=== PATIENT | female | born 1980 | race Caucasian/White ===

== ENCOUNTER 2023-05-10 12:40 | Outpatient (CLI) | payer BC, SELFPAY ==
--- NOTE | 2023-05-10 13:35 | ECG_ITS ---
Measurements Intervals [place] Rate: 66 P: 73 CA: 176 QRS: 74 QRSD: 100 T: 51 QT: 414 QTc: 434 Interpretive Statements SINUS RHYTHM WITH SINUS ARRHYTHMIA INCOMPLETE RIGHT BUNDLE BRANCH BLOCK BASELINE ARTIFACT- I, II, III, AVR, AVL, AVF, V1-V6 BORDERLINE ECG NO PREVIOUS ECG AVAILABLE FOR COMPARISON Electronically Signed On 05-10-2023 13:57:48 QUALIFICATIONS EXAMINER by Dax Boone D.O.
[2023-05-10 13:58] LABS: Hematocrit 41.7 % (37.0-47.0); Hemoglobin 14.3 g/dL (12.0-15.0)
== END 2023-05-10 12:41 | disposition home or self-care (01) ==
PROVIDERS: Anesthesiology; Visit Provider Surgery
DX: Z01.818 Encounter for other preprocedural examination (principal); I45.10 Unspecified right bundle-branch block; R93.1 Abnormal findings on diagnostic imaging of heart and coronary circulation; Z41.1 Encounter for cosmetic surgery
CPT/HCPCS: 36415; 85014; 85018; 93005

== ENCOUNTER 2023-05-16 00:37 | Day surgery (SDC) | payer OTHER, BC, SELFPAY ==
[2023-05-08 11:25] VITALS: BMI 24.9
--- NOTE | 2023-05-08 11:31 | PC.NURSE ---
Report to the Outpatient Waiting Room, entrance under the green pavilion located off [facility], at time 6:00 on date 05/16/23. Planned Procedure Time: 7:30. Time changes happen often and if your time is changed the preop area will call you the afternoon before. - You and your visitor will be asked to self-screen and do not enter if you have any COVID symptoms. - A mask is optional within the hospital at this time. Patients may have clear liquids (water, carbonated beverages, clear teas, apple juice) until 3 hours prior to surgery (4:30) with a maximum of 20 ounces. - No food from midnight until time of surgery Take the following medications with a SIP of water the morning of surgery: N/A DO NOT STOP ANY OF YOUR OTHER PRESCRIPTION MEDICATIONS PRIOR TO SURGERY ?EXCEPT THE FOLLOWING Medications to discontinue per physician: N/A Date to take last dose: N/A Please no make-up, nail qatari, hairspray, perfume, deodorant, or body powder the day of surgery. No jewelry (including any body piercings) or valuables the day of surgery, leave them at home. Please take a shower or bath the night before, or the morning of, surgery with an antibacterial soap. Wear comfortable, loose fitting clothing. - Jewelry must be removed prior to entering the operating room. Rings and piercings that are not removed may be cut off. - The hospital will not accept responsibility for valuables. - Please leave all valuables, including medications, at home the day of surgery. If you are going home after surgery, a licensed test driver must drive you home. - NO public transportation without another adult if you receive anesthesia. - We recommend that an adult stay with you for 24 hours following discharge. - We also recommend that you do not drive, make important decision, drink alcoholic beverages, or take any drugs that were not prescribed by your health care provider for at least 24 hours after your discharge time. Follow any additional instructions given to you from your surgeon. If you or anyone in your household have experienced Covid symptoms in the past week, please notify your surgeon or the nurse liaison at the phone number below for possible testing. Telephone instructions given to PT - BHARTI BARNETT and asked if any additional questions and then verbalized understanding. Patient advised to call surgeon office or pre surgery nurse liaison [phone] if any additional questions.
[2023-05-16] VITALS (12 sets, daily range): BP systolic 102–119; BP diastolic 62–80; PULSE 63–81; RESP 13–17; TEMP 36.6–37.3; O2SAT 98–100
[2023-05-16] MEDS: ACETAMINOPHEN 500 MG TABLET 1000 MG PO (06:25)
[2023-05-16] MEDS: SCOPOLAMINE 1 MG PATCH 1 PATCH TRANSDERM (06:26)
[2023-05-16 06:34] LABS: Urine Cotinine NEGATIVE
[2023-05-16] MEDS: LACTATED RINGERS 1,000 ML 30 ML IV CONT ×3 (06:40→12:15)
[2023-05-16] MEDS: KETOROLAC 15 MG/ML VIAL (*BKC) IV PUSH (06:41)
--- NOTE | 2023-05-16 06:57 | WPDHPUPDATE1 ---
History and Physical Update Update Date/Time: 05/16/23 06:57 History and Physical has been reviewed, including an updated exam of the patient. There are NO changes in the patient's condition. Risks, benefits, and alternatives have been discussed and questions answered. Patient agrees to proceed with procedure.
--- NOTE | 2023-05-16 07:15 | W.PM.PROC2 ---
Procedure Note - Detailed Date of Procedure 05/16/23 Pre-op Diagnosis skin laxity, 3cm Umb Hernia Post-op Diagnosis Same Procedure Performed Progressive tension abdominoplasty with suction lipectomy Surgeon Dewayne Howell MD Anesthesia General Findings Tissue removed: 814 grams Lipoaspirate: 1,900 cc Description of Procedure They are here today for the above procedures. Previously and again today the risks, benefits, alternatives were discussed in extensive detail. I wanted them to be very realistic about the risks involved as well as expectations. We discussed aftercare and what to monitor for. I was very upfront about the risks of wound breakdown leading to loss of skin, open wounds, and need for additional procedures with permanent abdominal deformity. We discussed DVT/PE risks and management. Made sure answered all of their questions to their satisfaction today and consent was obtained. They were marked in the preoperative holding area with their verification. The patient was taken to the operating room. Anesthesia was provided by anesthesiology. A Godfrey catheter was started. Placed prone on the operating room table with care taken to protect from injury. Prepped and draped in a standard sterile fashion. A surgical time-out was taken. Stab incisions were made and tumescent solution was infiltrated. Once adequate time was allowed for hemostasis a 5mm basket and 3mm multi hole cannula were utilized to complete suction lipectomy based on S.A.F.E. technique in multiple planes and passes. Suction lipectomy continued to result based on pre-operative planning, intra-operative observation, and rolling pinch test which were in full agreement. Patient was then placed supine with care taken to protect from injury. I placed the patient in a flexed position to verify the upper and lower markings would reach. I then placed supine. A thorough abdominal examination was completed. Stab incisions were made and tumescent solution infiltrated. Stab incisions were made and tumescent solution was infiltrated. Once adequate time was allowed for hemostasis a 5mm basket and 3mm multi hole cannula were utilized to complete suction lipectomy based on S.A.F.E. technique in multiple planes and passes. Suction lipectomy continued to result based on pre-operative planning, intra-operative observation, and rolling pinch test which were in full agreement. A 10 blade was used to make the upper incision. I continued dissection down to the level of fascia. Elevated just what was necessary for repair of the diastasis. I then again flexed the bed to verify the upper skin flap would reach the lower markings without tension. Once verified I placed her supine once again and a 10 blade used to make the lower incision. I elevated up to level the umbilicus and left the umbilicus intact on a well-vascularized stalk. The intervening tissue was removed. A 2 mm blunt cannula with 0.5% bupivicaine was injected deep to the fascia bilaterally. Dr. Vo entered for repair of the umbilical hernia. See his note for details. I plicated the diastasis recti using 0 PDO stratafix barbed suture. This was in 2 separate layers using 2 separate sutures as well. I repaired around the umbilicus leaving plenty of room for well-vascularized stalk of the umbilicus with 2-0 PDS. I also repaired lateral to the rectus using two layers of 0 PDO stratafix. The patient was flexed and starting from superior to inferior began plication using 2-0 Vicryl to obliterate all space in a standard progressive tension fashion. At the umbilicus I marked out the location of the skin and inset this with 3-0 Monocryl and 4-0 Vicryl. I continued the remainder of the plication using 2-0 Vicryl until I reached my lower planned scar line. I trimmed any excess skin of the upper flap making sure this was a tension-free closure. 10 Tray drain placed. I then approximated using a 3 point suture
--- NOTE | 2023-05-16 07:21 | WPDANESEPPF ---
Anes - Initial Pre Proc Eval Procedure: Operation Date: 05/16/23 07:30 Proposed Procedures p Abdominoplasty with Liposuction - Dewayne Howell MD s Open Umbilical Hernia Repair, Possible Mesh - Autumn Vo MD Date/Time: 05/16/23 07:21 Surgeon: Dewayne Howell MD Pre Op Diagnosis: skin laxity, 3cm Umb Hernia Patient Data Age: 42 Gender: F Height: 1.68 m Weight: 70.2 kg Last Vital Signs Temp 97.9 F 05/16/23 06:19 Pulse 63 05/16/23 06:19 Resp 16 05/16/23 06:19 BP 111/76 05/16/23 06:19 Pulse Ox 100 05/16/23 06:19 O2 Del Method Room Air 05/16/23 06:19 Allergies Allergy/AdvReac Type Severity Reaction Status Date / Time cefaclor Allergy Mild vomiting Verified 05/16/23 06:23 as child Home Medications Medication Instructions Recorded Confirmed Type No Home Medications 03/18/23 05/16/23 History Laboratory Tests 05/16/23 06:12 Cotinine Negative Patient hx anesthesia problems: post op nausea/vomiting Family hx anesthesia problems: none Results Review: All pre-operative results and documents have been reviewed as part of the pre-operative evaluation. [facility] Surgical History Surgical History History of foot surgery Previous section x2 S/P ACL reconstruction x3 Social History Social History Smoking status: Never smoker Alcohol intake: current Drinks per week: 3 Alcohol use details: rarely Substance use: never Substance use type: does not use Living arrangements: with family Occupation/Education: unemployed Spiritual care concerns: No Anes - Eval Final PreProcedure Day of Procedure 05/16/23 07:21 Patient weight: overweight Heart: regular rate and rhythm Lungs: clear to auscultation Airway: Mallampati scale class II Neurological: alert and oriented Last oral intake: >/= 8 hours ASA classification: II Emergent: no Anesthetic plan: proceed Anesthesia type and monitoring: general ETT and standard monitoring Results Review: All pre-operative results and documents have been reviewed as part of the pre-operative evaluation. Informed Consent: The patient's anesthetic plan and its attendant risks and benefits were discussed with the patient/family/POA. Questions were solicited and answers provided to the satisfaction of the patient/family/POA.
--- NOTE | 2023-05-16 07:27 | PM.IMHP ---
H&P: HPI History of Present Illness Date/Time: 05/16/23 07:27 Chief Complaint: umbilical hernia Narrative: Kenroy is a 42 y/o female who presents with umbilical hernia at the request of Dr. Howell. She noticed this a few years ago during her . She feels the bulge has increased with each but does not typically experience pain. She is able to reduce the bulge when laying down. She is scheduled for an abdominoplasty with Dr. Howell and would like to coordinate surgery. She has a surgical history of . Review of Systems Review of Systems: All systems reviewed & are unremarkable except as noted in HPI and below PMFSH Surgical History Surgical History History of foot surgery Previous section x2 S/P ACL reconstruction x3 Social History Social History Smoking status: Never smoker Alcohol intake: current Drinks per week: 3 Alcohol use details: rarely Substance use: never Substance use type: does not use Living arrangements: with family Occupation/Education: unemployed Spiritual care concerns: No Meds Home Medications and Allergies Home Medications Medication Instructions Recorded Confirmed Type No Home Medications 03/18/23 05/16/23 History Allergies Allergy/AdvReac Type Severity Reaction Status Date / Time cefaclor Allergy Mild vomiting Verified 05/16/23 06:23 as child Vital Signs Vital Signs - 24 hr 05/16/23 06:19 Temperature 36.6 C Pulse Rate 63 Respiratory Rate 16 Blood Pressure 111/76 Pulse Oximetry 100 Oxygen Delivery Room Air Exam Const: General: cooperative, comfortable and no acute distress Resp: Auscultation: clear to auscultation bilaterally Cardio: Rate: regular rate Rhythm: regular rhythm GI: Other: moderate umbilical hernia c incarcerated preperitoneal fat Assessment and Plan Assessment and plan (1) Umbilical hernia without mention of obstruction or gangrene: Qualifiers: Obstruction and gangrene presence: without obstruction or gangrene Qualified Code(s): K42.9 - Umbilical hernia without obstruction or gangrene Code(s): K42.9 - Umbilical hernia without obstruction or gangrene Status: Acute Assessment and Plan: will setup for repair c possible mesh, surgery will be concurrent c abdominoplasty by Plastics
--- NOTE | 2023-05-16 07:29 | WPDHPUPDATE1 ---
History and Physical Update Update Date/Time: 05/16/23 07:29 History and Physical has been reviewed, including an updated exam of the patient. There are NO changes in the patient's condition. Risks, benefits, and alternatives have been discussed and questions answered. Patient agrees to proceed with procedure.
[2023-05-16] MEDS: CLINDAMYCIN 900 MG/D5W 50 ML 900 MG/50 ML PIGGYBACK 50 MG IVPB (07:33)
[2023-05-16] MEDS: BUPIVACAINE/EPINEPHRINE 0.5% 30 ML VIAL 60 ML INFILTRATE (07:33)
[2023-05-16] MEDS: TRANEXAMIC ACID 1,000MG/ISO100 1,000 MG/100 ML BAG 200 MG IVPB (07:52)
--- NOTE | 2023-05-16 10:26 | W.PM.PROC2 ---
Procedure Note - Detailed Date of Procedure 05/16/23 Pre-op Diagnosis Umbilical hernia Post-op Diagnosis Same Procedure Performed repair of incarcerated umbilical hernia with defect measuring 3 cm Surgeon Autumn Vo MD Anesthesia General Indications 42-year-old female with enlarging, symptomatic umbilical hernia over the last few years. Findings 3 cm umbilical hernia with incarcerated preperitoneal fat and omentum Description of Procedure The patient was in the operating room in the supine position. Plastic surgery had already commenced with liposuction and abdominoplasty. At this point, was asked to come to the OR to repair known umbilical hernia. The abdomen wall was already exposed. I was able to note the defect in the umbilicus. The umbilical skin was spared during the abdominoplasty. I was able to separate the hernia off the overlying umbilical dermis. I then excised the sac. The contents of the hernia were noted to be preperitoneal fat and omentum. This was viable and reduced back into the abdominal cavity. The defect was approximately 3 cm. I was able to place a small Ventralex patch in the underlay position. This was sutured in with interrupted 0 Ethibond suture. This provided a nice overlap of the defect. I then closed the overlying fascia with interrupted 0 Ethibond suture. Plastic surgery then returned to complete abdominal plasty. Estimated Blood Loss 5 Pathology None sent Complications No immediate complications Condition Stable Disposition No change [facility] Billing Surgery - Charge Forward: Surgery Billing
--- NOTE | 2023-05-16 12:20 | SUR.PHASEI ---
Per Gómez Russo TELESALES MANAGER expected drain output greater than usual amount due to tumescent injection of roughly 800ml at drain site which is draining into R MEREDITH drain.
[2023-05-16] MEDS: ONDANSETRON INJ 4 MG/2 ML VIAL IV PUSH (13:17)
[2023-05-16] MEDS: oxyCODONE HCL (*CRX) 5 MG TAB IR PO (14:27)
== END 2023-05-16 15:17 | disposition home or self-care (01) ==
PROVIDERS: Surgery; Visit Provider Surgery Plastic and Reconstructive Surgery
PROC: (CPT 15877; principal; 2023-05-16 07:30)
PROC: (CPT 49594; 2023-05-16 07:30)
DX: Z41.1 Encounter for cosmetic surgery (principal); K42.0 Umbilical hernia with obstruction, without gangrene
CPT/HCPCS: 49594; 15877; 15830; 15847; 80307; A9270; C1781; J0171; J1100; J1170; J1200; J1885; J2250; J2405; J2704; J3010; J7120

== ENCOUNTER 2023-09-26 16:19 | Outpatient (CLI) | payer BC, SELFPAY ==
--- NOTE | ~2023-09-26 | CT_ITS ---
Non-contrast CT scan of the Abdomen and Pelvis Clinical indication: Intra-abdominal swelling Technique: 2.5 mm axial scans were obtained through the abdomen and pelvis without intravenous or or al contrast. Dose reduction technique was used on this scan by utilizing automated exposure control a nd iterative reconstruction technique. The dose-length product (DLP) was 369.56 mGy-cm. Findings: Images through the lung bases reveal no abnormalities. 3 mm nonobstructing right renal stone present. No left renal stone. No ureteral stone or hydronephros is on either side. The liver, pancreas, gallbladder, and adrenals appear normal. Spleen mildly enlarged at 14.4 cm. Ther e is no aortic aneurysm. There is no evidence of bowel obstruction. Images through the pelvis were performed. There is trace pelvic free fluid. Urinary bladder unremarka ble. No adnexal mass seen. Impression: 3 mm nonobstructing right renal stone. Mild splenomegaly. Reviewed, dictated and finalized at [facility]. Impression: 3 mm nonobstructing right renal stone. Mild splenomegaly.
== END 2023-09-26 16:20 | disposition home or self-care (01) ==
PROVIDERS: Visit Provider Surgery Plastic and Reconstructive Surgery
DX: N20.0 Calculus of kidney (principal); R16.1 Splenomegaly, not elsewhere classified
CPT/HCPCS: 74176